=== PATIENT | male | born 1950 | race Caucasian/White ===

== ENCOUNTER → 2017-04-02 | Outpatient (CLI) | payer OTHER ==
[~2017-04-02] MED LIST: /ADVA50050 IN; /GLYB5TA OR; ASPI81TA31 OR; BACT800T OR; CALCIUM +D PO; CEPH500C OR; CLINDAMYCIN PO; COZA50TA18 OR; FLON0.05; GLIM2TA PO; GLUC1000 OR; INVO100T PO; JANU100T PO; JANUVIA PO; KEFL500C OR; MULTIVIT PO; POTA10CA2 OR; PRAV40TA2 PO; PRIL20CA OR; VITA200016 PO
[2017-04-02 09:38] LABS: BASO % 0.7 % (0.0-1.0); LARGE UNSTAINED CELL # 0.2 K/mm3 (0.0-0.4); LARGE UNSTAINED CELL % 2.7 % (0.0-4.0); LYMPH # 1.5 K/mm3 (1.5-4.5); LYMPH % 21.6 % (24.0-44.0); MEAN CORPUSCULAR HEMOGLOBIN 30.3 pg (27.0-33.0); MEAN CORPUSCULAR HGB CONC 35.1 g/dl (32.0-36.5); MEAN CORPUSCULAR VOLUME 86.4 fl (80.0-96.0); MONO # 0.5 K/mm3 (0.0-0.8); MONO % 7.6 % (0.0-5.0); NEUTROPHILS # 4.2 K/mm3 (1.8-7.7); NEUTROPHILS % 67.3 % (36.0-66.0); PLATELET COUNT, AUTOMATED 148 k/mm3 (150-450); RED CELL DISTRIBUTION WIDTH 12.4 % (11.5-14.5); WHITE BLOOD COUNT 6.2 K/mm3 (4.0-10.0)
== END ==
LOC: M WUC 08:11
PROVIDERS: ATTEND Family Medicine
DX: E55.9 Vitamin D deficiency, unspecified (principal); E11.9 Type 2 diabetes mellitus without complications; E78.5 Hyperlipidemia, unspecified; I10 Essential (primary) hypertension; Z12.5 Encounter for screening for malignant neoplasm of prostate; E80.4 Gilbert syndrome; B36.0 Pityriasis versicolor

== ENCOUNTER → 2017-08-20 | Outpatient (CLI) | payer OTHER ==
[~2017-08-20] MED LIST changes: +NIZO2SHA TOP; +TRUL0.5I SC; +TUMS500C PO
[2017-08-20 09:33] LABS: INR 1.06
[2017-08-20 09:56] LABS: VITAMIN B12 LEVEL 408 PG/ML (247-911)
[2017-08-20 09:58] LABS: ALBUMIN/GLOBULIN RATIO 1.38 (1.00-1.93); ALKALINE PHOSPHATASE 136 U/L (45-117); ALT/SGPT 28 U/L (12-78); ANION GAP 9 MEQ/L (8-16); AST/SGOT 12 U/L (15-37); BLOOD UREA NITROGEN 20 MG/DL (7-18); CALCIUM LEVEL 9.5 MG/DL (8.8-10.2); CARBON DIOXIDE LEVEL 29 MEQ/L (21-32); CHLORIDE LEVEL 105 MEQ/L (98-107); CREATININE FOR GFR 0.92 MG/DL (0.70-1.30); GLOMERULAR FILTRATION RATE > 60.0 (>49); GLUCOSE, FASTING 191 MG/DL (80-110); POTASSIUM SERUM 4.3 MEQ/L (3.5-5.1); SODIUM LEVEL 143 MEQ/L (136-145); TOTAL PROTEIN 6.9 GM/DL (6.4-8.2)
== END ==
LOC: M WUC 08:08
PROVIDERS: ATTEND Family Medicine
DX: E11.9 Type 2 diabetes mellitus without complications (principal); E55.9 Vitamin D deficiency, unspecified; E78.5 Hyperlipidemia, unspecified; E80.4 Gilbert syndrome; Z12.5 Encounter for screening for malignant neoplasm of prostate; Z79.01 Long term (current) use of anticoagulants
CPT/HCPCS: 36415; 80053; 82607; 83036; 83970; 84443; 85610; 85730; G0103

== ENCOUNTER → 2017-12-24 | Outpatient (CLI) | payer OTHER ==
[2017-12-24 10:28] LABS: ALBUMIN/GLOBULIN RATIO 1.43 (1.00-1.93); ALKALINE PHOSPHATASE 138 U/L (45-117); ALT/SGPT 22 U/L (12-78); ANION GAP 5 MEQ/L (8-16); AST/SGOT 13 U/L (7-37); BILIRUBIN,TOTAL 1.1 MG/DL (0.2-1.0); BLOOD UREA NITROGEN 21 MG/DL (7-18); C REACTIVE PROTEIN QUANTITATIV < 0.30 MG/DL (0.00-0.30); CALCIUM LEVEL 9.4 MG/DL (8.8-10.2); CARBON DIOXIDE LEVEL 31 MEQ/L (21-32); CHLORIDE LEVEL 104 MEQ/L (98-107); CHOLESTEROL LEVEL 100 MG/DL (<200); CHOLESTEROL RISK RATIO 2.222 (<5); CPK CREATINE PHOSPHOKINASE 51 U/L (39-308); CREATININE FOR GFR 0.94 MG/DL (0.70-1.30); GLOMERULAR FILTRATION RATE > 60.0 (>49); GLUCOSE, FASTING 154 MG/DL (70-100); HDL CHOLESTEROL 45 MG/DL (>40); LDL CHOLESTEROL 27.6 MG/DL (<100); NON-HDL-C 55 MG/DL; POTASSIUM SERUM 4.8 MEQ/L (3.5-5.1); SODIUM LEVEL 140 MEQ/L (136-145); TOTAL PROTEIN 6.8 GM/DL (6.4-8.2); TRIGLYCERIDES LEVEL 137 MG/DL (<150)
[2017-12-24 10:41] LABS: ESTIMATED AVERAGE GLUCOSE 169 MG/DL (60-110); HEMOGLOBIN A1c 7.5 %
[2017-12-24 10:54] LABS: TOTAL 25(OH) VITAMIN D 38.5 NG/ML (30.0-100.0)
[2017-12-24 10:56] LABS: PTH INTACT 91.1 PG/ML (14.0-72.0)
== END ==
LOC: M WUC 08:08
DX: E78.5 Hyperlipidemia, unspecified (principal); E55.9 Vitamin D deficiency, unspecified; E11.9 Type 2 diabetes mellitus without complications; Z12.5 Encounter for screening for malignant neoplasm of prostate
CPT/HCPCS: 82550

== ENCOUNTER → 2018-05-23 | Outpatient (CLI) | payer OTHER ==
[2018-05-23 12:47] LABS: APPEARANCE, URINE CLEAR (CLEAR); BACTERIA, URINE AUTO NEGATIVE (NEGATIVE); BILIRUBIN, URINE AUTO NEGATIVE (NEGATIVE); BLOOD, URINE BLOOD NEGATIVE (NEGATIVE); COLOR, URINE STRAW (YELLOW); GLUCOSE, URINE (UA) AUTO 3+ mg/dL (NEGATIVE); KETONE, URINE AUTO NEGATIVE (NEGATIVE); LEUKOCYTE ESTERASE, URINE AUTO NEGATIVE (NEGATIVE); NITRITE, URINE AUTO NEGATIVE (NEGATIVE); PROTEIN, URINE AUTO NEGATIVE (NEGATIVE); RBC, URINE AUTO 1 /HPF (0-3); SQUAMOUS EPITHELIAL CELL UR AU 0 /HPF (0-6); UROBILINOGEN, URINE AUTO 0.2 mg/dL (0.0-2.0); WBC, URINE AUTO 0 /HPF (0-3)
[2018-05-23 13:24] LABS: ALBUMIN 3.8 GM/DL (3.2-5.2); ALBUMIN/GLOBULIN RATIO 1.31 (1.00-1.93); ALKALINE PHOSPHATASE 167 U/L (45-117); ALT/SGPT 26 U/L (12-78); ANION GAP 9 MEQ/L (8-16); AST/SGOT 13 U/L (7-37); BILIRUBIN,TOTAL 1.2 MG/DL (0.2-1.0); BLOOD UREA NITROGEN 21 MG/DL (7-18); CALCIUM LEVEL 9.7 MG/DL (8.8-10.2); CARBON DIOXIDE LEVEL 28 MEQ/L (21-32); CHLORIDE LEVEL 103 MEQ/L (98-107); CREATININE FOR GFR 0.99 MG/DL (0.70-1.30); FREE T4 1.08 NG/DL (0.76-1.46); GLOMERULAR FILTRATION RATE > 60.0 (>49); GLUCOSE, FASTING 230 MG/DL (70-100); SODIUM LEVEL 140 MEQ/L (136-145); TOTAL PROTEIN 6.7 GM/DL (6.4-8.2)
[2018-05-23 13:28] LABS: ESTIMATED AVERAGE GLUCOSE 186 MG/DL (60-110); HEMOGLOBIN A1c 8.1 %
[2018-05-23 14:21] LABS: CREATININE, URINE 56.4 MG/DL; MALB URINE SIEMENS 20.7 MG/L; MAU/CREAT RATIO 36.7 MCG/MG (0.0-30.0)
== END ==
LOC: M WUC 08:41
DX: E55.9 Vitamin D deficiency, unspecified (principal); E11.9 Type 2 diabetes mellitus without complications; E78.5 Hyperlipidemia, unspecified
CPT/HCPCS: 83735

== ENCOUNTER 2018-07-28 14:31 | Emergency (ER) | payer OTHER ==
[2018-07-28 15:12] LABS: BASO # 0.1 10^3/uL (0.0-0.2); BASO % 0.7 % (0.0-1.0); EOS # 0.2 10^3/uL (0.0-0.50); HEMATOCRIT 44.6 % (42.0-52.0); HEMOGLOBIN 15.1 g/dl (13.5-17.5); IMMATURE GRANULOCYTE % 0.6 % (0-3.0); LYMPH # 1.5 10^3/uL (1.5-4.5); LYMPH % 17.7 % (24.0-44.0); MEAN CORPUSCULAR HEMOGLOBIN 29.2 pg (27.0-33.0); MEAN CORPUSCULAR HGB CONC 33.9 g/dl (32.0-36.5); MEAN CORPUSCULAR VOLUME 86.1 fl (80.0-96.0); MONO # 0.6 10^3/uL (0.0-0.8); MONO % 7.1 % (0.0-5.0); NEUTROPHILS # 6.1 10^3/uL (1.8-7.7); NEUTROPHILS % 71.9 % (36.0-66.0); PLATELET COUNT, AUTOMATED 150 10^3/uL (150-450); RED BLOOD COUNT 5.18 10^6/uL (4.30-6.10); RED CELL DISTRIBUTION WIDTH 12.1 % (11.5-14.5); WHITE BLOOD COUNT 8.5 10^3/uL (4.0-10.0)
[2018-07-28] MEDS ORDERED: MORPHINE 4 MG/ML 1ML VIAL/SYRINGE (J2270) IV (15:15)
[2018-07-28 15:22] LABS: INR 1.07
[2018-07-28 15:23] LABS: PARTIAL THROMBOPLASTIN TIME 28.8 SECONDS (25.4-37.6)
[2018-07-28 15:27] LABS: ALBUMIN/GLOBULIN RATIO 1.05 (1.00-1.93); ALKALINE PHOSPHATASE 159 U/L (45-117); ALT/SGPT 27 U/L (12-78); ANION GAP 9 MEQ/L (8-16); AST/SGOT 14 U/L (7-37); BILIRUBIN,DIRECT 0.3 MG/DL (0.0-0.2); BILIRUBIN,TOTAL 1.1 MG/DL (0.2-1.0); BLOOD UREA NITROGEN 18 MG/DL (7-18); CALCIUM LEVEL 9.9 MG/DL (8.8-10.2); CARBON DIOXIDE LEVEL 30 MEQ/L (21-32); CHLORIDE LEVEL 103 MEQ/L (98-107); CK-MB VALUE MASS 1.9 NG/ML (<3.6); CPK CREATINE PHOSPHOKINASE 57 U/L (39-308); CREATININE FOR GFR 0.94 MG/DL (0.70-1.30); GLOMERULAR FILTRATION RATE > 60.0 (>49); GLUCOSE, FASTING 129 MG/DL (70-100); LIPASE 255 U/L (73-393); MB/CK RELATIVE INDEX 3.33 (< OR =4); POTASSIUM SERUM 4.3 MEQ/L (3.5-5.1); SODIUM LEVEL 142 MEQ/L (136-145); TOTAL PROTEIN 7.8 GM/DL (6.4-8.2); TROPONIN I < 0.02 NG/ML (< 0.10)
[2018-07-28] MEDS ORDERED: ISOVUE-370 76% 100ML VIAL (Q9967) As Ordered (15:54)
[2018-07-28 18:20] LABS: BEDSIDE GLUCOSE 98 MG/DL (80-115)
== END 2018-07-28 19:12 | disposition home or self-care (01) ==
LOC: M ED 14:31
DX: M25.512 Pain in left shoulder (principal); E11.9 Type 2 diabetes mellitus without complications; I10 Essential (primary) hypertension; E78.5 Hyperlipidemia, unspecified; K21.9 Gastro-esophageal reflux disease without esophagitis; D86.9 Sarcoidosis, unspecified; E80.4 Gilbert syndrome
CPT/HCPCS: Q9967

== ENCOUNTER → 2018-09-22 | Outpatient (CLI) | payer OTHER ==
[2018-09-22 09:29] LABS: APPEARANCE, URINE CLEAR (CLEAR); BACTERIA, URINE AUTO NEGATIVE (NEGATIVE); BILIRUBIN, URINE AUTO NEGATIVE (NEGATIVE); BLOOD, URINE BLOOD NEGATIVE (NEGATIVE); COLOR, URINE YELLOW (YELLOW); GLUCOSE, URINE (UA) AUTO 3+ mg/dL (NEGATIVE); KETONE, URINE AUTO NEGATIVE (NEGATIVE); LEUKOCYTE ESTERASE, URINE AUTO NEGATIVE (NEGATIVE); NITRITE, URINE AUTO NEGATIVE (NEGATIVE); PROTEIN, URINE AUTO NEGATIVE (NEGATIVE); RBC, URINE AUTO 1 /HPF (0-3); SQUAMOUS EPITHELIAL CELL UR AU 0 /HPF (0-6); UROBILINOGEN, URINE AUTO 0.2 mg/dL (0.0-2.0); WBC, URINE AUTO 0 /HPF (0-3)
[2018-09-22 09:47] LABS: ALBUMIN 4.1 GM/DL (3.2-5.2); ALBUMIN/GLOBULIN RATIO 1.64 (1.00-1.93); ALKALINE PHOSPHATASE 157 U/L (45-117); ALT/SGPT 24 U/L (12-78); ANION GAP 8 MEQ/L (8-16); AST/SGOT 15 U/L (7-37); BILIRUBIN,TOTAL 1.7 MG/DL (0.2-1.0); BLOOD UREA NITROGEN 21 MG/DL (7-18); CALCIUM LEVEL 9.7 MG/DL (8.8-10.2); CARBON DIOXIDE LEVEL 31 MEQ/L (21-32); CHLORIDE LEVEL 104 MEQ/L (98-107); CREATININE FOR GFR 0.86 MG/DL (0.70-1.30); GLOMERULAR FILTRATION RATE > 60.0 (>49); GLUCOSE, FASTING 148 MG/DL (70-100); POTASSIUM SERUM 4.1 MEQ/L (3.5-5.1); PSA SCREENING 0.76 NG/ML (< 4.0); SODIUM LEVEL 143 MEQ/L (136-145); TOTAL PROTEIN 6.6 GM/DL (6.4-8.2)
[2018-09-22 10:03] LABS: MALB URINE SIEMENS 33.4 MG/L
[2018-09-22 10:17] LABS: MAU/CREAT RATIO 45.8 MCG/MG (0.0-30.0)
[2018-09-22 10:29] LABS: PTH INTACT 71.3 PG/ML (18.5-88.0); TOTAL 25(OH) VITAMIN D 38.9 NG/ML (30.0-100.0)
[2018-09-22 10:37] LABS: ESTIMATED AVERAGE GLUCOSE 174 MG/DL (60-110); HEMOGLOBIN A1c 7.7 %
[2018-09-23 14:47] LABS: H PYLORI SERUM QUANT IgG ABY 0.42 (0.00-0.79)
== END ==
LOC: M WUC 08:12
DX: E55.9 Vitamin D deficiency, unspecified (principal); E11.9 Type 2 diabetes mellitus without complications; R10.13 Epigastric pain; Z12.5 Encounter for screening for malignant neoplasm of prostate; Z79.899 Other long term (current) drug therapy
CPT/HCPCS: 80053

== ENCOUNTER → 2019-02-16 | Outpatient (CLI) | payer MEDICARE ==
[2019-02-16 09:50] LABS: BASO # 0.1 10^3/uL (0.0-0.2); BASO % 0.8 % (0.0-1.0); EOS # 0.2 10^3/uL (0.0-0.50); EOS % 2.2 % (0.0-3.0); HEMATOCRIT 40.4 % (42.0-52.0); HEMOGLOBIN 13.6 g/dl (13.5-17.5); LYMPH # 1.3 10^3/uL (1.5-4.5); LYMPH % 18.2 % (24.0-44.0); MEAN CORPUSCULAR HEMOGLOBIN 28.5 pg (27.0-33.0); MEAN CORPUSCULAR HGB CONC 33.7 g/dl (32.0-36.5); MEAN CORPUSCULAR VOLUME 84.7 fl (80.0-96.0); MONO # 0.5 10^3/uL (0.0-0.8); MONO % 7.3 % (0.0-5.0); NEUTROPHILS # 5.1 10^3/uL (1.8-7.7); NEUTROPHILS % 71.2 % (36.0-66.0); PLATELET COUNT, AUTOMATED 136 10^3/uL (150-450); RED BLOOD COUNT 4.77 10^6/uL (4.30-6.10); WHITE BLOOD COUNT 7.1 10^3/uL (4.0-10.0)
[2019-02-16 10:16] LABS: ALT/SGPT 26 U/L (12-78); BILIRUBIN,DIRECT 0.3 MG/DL (0.0-0.2); BILIRUBIN,TOTAL 1.3 MG/DL (0.2-1.0); BLOOD UREA NITROGEN 20 MG/DL (7-18); CALCIUM LEVEL 9.7 MG/DL (8.8-10.2); CARBON DIOXIDE LEVEL 30 MEQ/L (21-32); CHLORIDE LEVEL 105 MEQ/L (98-107); CHOLESTEROL LEVEL 111 MG/DL (<200); CHOLESTEROL RISK RATIO 2.581 (<5); CREATININE FOR GFR 0.94 MG/DL (0.70-1.30); GLOMERULAR FILTRATION RATE > 60.0 (>49); GLUCOSE, FASTING 161 MG/DL (70-100); HDL CHOLESTEROL 43 MG/DL (>40); LDL CHOLESTEROL 43 MG/DL (<100); NON-HDL-C 68 MG/DL; POTASSIUM SERUM 4.2 MEQ/L (3.5-5.1); SODIUM LEVEL 142 MEQ/L (136-145); TOTAL PROTEIN 6.7 GM/DL (6.4-8.2); TRIGLYCERIDES LEVEL 125 MG/DL (<150)
[2019-02-16 11:21] LABS: HEMOGLOBIN A1c 9.1 %
[2019-02-19 00:07] LABS: ANA (HEP2) Negative (.); PR3 ANTIPROTEINASE ANTIBODIES <3.5 U/mL (0.0-3.5)
[2019-02-21 00:06] LABS: ANCA-ATYPICAL <1:20 titer (Neg:<1:20); CYTOPLASMIC NEUTROP AB ANCA-C <1:20 titer (Neg:<1:20); PERINUCLEAR AB ANCA-P <1:20 titer (Neg:<1:20)
== END ==
LOC: M WUC 08:07
PROVIDERS: ATTEND Family Medicine
DX: E80.4 Gilbert syndrome (principal); E11.9 Type 2 diabetes mellitus without complications; E78.5 Hyperlipidemia, unspecified; E55.9 Vitamin D deficiency, unspecified

== ENCOUNTER → 2019-05-01 | Outpatient (CLI) | payer MEDICARE ==
[~2019-05-01] MED LIST changes: -/ADVA50050 IN; -/GLYB5TA OR; +ADVA1AER2 IN; -GLIM2TA PO; +GLIM2TAB29 PO; +GLYB1TAB29 OR
--- NOTE | 2019-05-01 13:16 | REP ---
CERVICAL SPINE, EIGHT VIEWS: HISTORY: Strain. The cervical spine is visualized from C1 to the C6-7 level with the lateral radiographs. There is no acute fracture. The C4-5 and C5-6 intervertebral discs are decreased in height consistent with disc degeneration. Osteophytes are present on C5 and 6. There is narrowing of the C5 neural foramina secondary to uncinate process hypertrophy. There are 2 mm of retrolisthesis of C5 on 6. This is unchanged with flexion and extension. IMPRESSION: Degenerative change as described above. Electronically Signed by Vinod Avendano MD 05/01/2019 01:21 P
== END ==
LOC: M WUC 12:12
PROVIDERS: ATTEND Physician Assistant
DX: S16.1XXA Strain of muscle, fascia and tendon at neck level, initial encounter (principal); M50.321 Other cervical disc degeneration at C4-C5 level; M50.322 Other cervical disc degeneration at C5-C6 level; M25.78 Osteophyte, vertebrae; M48.02 Spinal stenosis, cervical region; X58.XXXA Exposure to other specified factors, initial encounter; Y92.89 Other specified places as the place of occurrence of the external cause

== ENCOUNTER → 2019-07-13 | Outpatient (CLI) | payer MEDICARE ==
[2019-07-13 09:52] LABS: INR 1.09; PROTHROMBIN TIME 13.8 SECONDS (11.8-14.0)
[2019-07-13 09:53] LABS: PARTIAL THROMBOPLASTIN TIME 30.4 SECONDS (25.0-38.4)
[2019-07-13 10:22] LABS: ALBUMIN 3.9 GM/DL (3.2-5.2); ALT/SGPT 25 U/L (12-78); BILIRUBIN,DIRECT 0.2 MG/DL (0.0-0.2); BLOOD UREA NITROGEN 22 MG/DL (7-18); CALCIUM LEVEL 9.9 MG/DL (8.8-10.2); CARBON DIOXIDE LEVEL 29 MEQ/L (21-32); CHLORIDE LEVEL 107 MEQ/L (98-107); CREATININE FOR GFR 0.88 MG/DL (0.70-1.30); GAMMA GLUTAMYLTRANSPEPTIDASE 15 U/L (15-85); GLOMERULAR FILTRATION RATE > 60.0 (>42); GLUCOSE, FASTING 143 MG/DL (70-100); POTASSIUM SERUM 4.4 MEQ/L (3.5-5.1); SODIUM LEVEL 143 MEQ/L (136-145); TOTAL PROTEIN 6.8 GM/DL (6.4-8.2)
[2019-07-13 10:36] LABS: PTH INTACT 64.8 PG/ML (18.5-88.0); VITAMIN B12 LEVEL 366 PG/ML (247-911)
[2019-07-13 14:44] LABS: HEMOGLOBIN A1c 8.2 %
[2019-07-15 00:07] LABS: ANTI-MITOCHONDRIAL ANTIBODY <20.0 Units (0.0-20.0); VITAMIN D 1,25 DIHYDROXY 37.4 pg/mL (19.9-79.3)
== END ==
LOC: M WUC 08:02
PROVIDERS: ATTEND Family Medicine
DX: E80.4 Gilbert syndrome (principal); E55.9 Vitamin D deficiency, unspecified; E11.9 Type 2 diabetes mellitus without complications; Z79.01 Long term (current) use of anticoagulants

== ENCOUNTER → 2019-12-14 | Outpatient (CLI) | payer MEDICARE ==
[2019-12-14 09:47] LABS: BASO # 0.1 10^3/uL (0.0-0.2); BASO % 0.8 % (0.0-1.0); EOS # 0.2 10^3/uL (0.0-0.5); EOS % 2.6 % (0.0-3.0); HEMATOCRIT 42.4 % (42.0-52.0); HEMOGLOBIN 13.3 g/dl (13.5-17.5); LYMPH # 1.4 10^3/uL (1.5-5.0); LYMPH % 20.9 % (24.0-44.0); MEAN CORPUSCULAR HEMOGLOBIN 26.6 pg (27.0-33.0); MEAN CORPUSCULAR HGB CONC 31.4 g/dl (32.0-36.5); MEAN CORPUSCULAR VOLUME 84.8 fl (80.0-96.0); MONO # 0.5 10^3/uL (0.0-0.8); MONO % 7.1 % (0.0-5.0); NEUTROPHILS # 4.5 10^3/uL (1.5-8.5); NEUTROPHILS % 68.4 % (36.0-66.0); PLATELET COUNT, AUTOMATED 162 10^3/uL (150-450); WHITE BLOOD COUNT 6.6 10^3/uL (4.0-10.0)
[2019-12-14 10:04] LABS: HEMOGLOBIN A1c 8.4 %
[2019-12-14 10:16] LABS: CHOLESTEROL RISK RATIO 2.684 (<5); FREE T4 1.12 NG/DL (0.76-1.46); THYROID STIMULATING HORMONE 1.38 uIU/ML (0.358-3.740)
== END ==
LOC: M WUC 08:09
PROVIDERS: ATTEND Family Medicine
DX: E53.8 Deficiency of other specified B group vitamins (principal); E11.9 Type 2 diabetes mellitus without complications; Z12.5 Encounter for screening for malignant neoplasm of prostate
CPT/HCPCS: 36415; 80061; 82607; 83036; 84439; 84443; 85025; 85046; G0103

== ENCOUNTER → 2020-05-21 | Outpatient (CLI) | payer MEDICARE ==
[2020-05-21 10:05] LABS: BASO # 0.1 10^3/uL (0.0-0.2); BASO % 0.8 % (0.0-1.0); EOS # 0.2 10^3/uL (0.0-0.5); EOS % 2.2 % (0.0-3.0); HEMATOCRIT 40.3 % (42.0-52.0); HEMOGLOBIN 12.7 g/dl (13.5-17.5); LYMPH # 1.3 10^3/uL (1.5-5.0); LYMPH % 17.9 % (24.0-44.0); MEAN CORPUSCULAR HEMOGLOBIN 26.6 pg (27.0-33.0); MEAN CORPUSCULAR HGB CONC 31.5 g/dl (32.0-36.5); MEAN CORPUSCULAR VOLUME 84.5 fl (80.0-96.0); MONO # 0.5 10^3/uL (0.0-0.8); MONO % 6.6 % (0.0-5.0); NEUTROPHILS # 5.1 10^3/uL (1.5-8.5); NEUTROPHILS % 72.1 % (36.0-66.0); PLATELET COUNT, AUTOMATED 147 10^3/uL (150-450); RED BLOOD COUNT 4.77 10^6/uL (4.30-6.10); WHITE BLOOD COUNT 7.1 10^3/uL (4.0-10.0)
[2020-05-21 10:12] LABS: APPEARANCE, URINE CLEAR (CLEAR); BACTERIA, URINE AUTO NEGATIVE (NEGATIVE); BILIRUBIN, URINE AUTO NEGATIVE (NEGATIVE); BLOOD, URINE BLOOD NEGATIVE (NEGATIVE); COLOR, URINE YELLOW (YELLOW); GLUCOSE, URINE (UA) AUTO 3+ mg/dL (NEGATIVE); KETONE, URINE AUTO NEGATIVE (NEGATIVE); LEUKOCYTE ESTERASE, URINE AUTO NEGATIVE (NEGATIVE); MUCUS, URINE SMALL (NEGATIVE); NITRITE, URINE AUTO NEGATIVE (NEGATIVE); PROTEIN, URINE AUTO NEGATIVE (NEGATIVE); RBC, URINE AUTO 3 /HPF (0-3); SPECIFIC GRAVITY URINE AUTO 1.029 (1.002-1.035); SQUAMOUS EPITHELIAL CELL UR AU 0 /HPF (0-6); UROBILINOGEN, URINE AUTO 0.2 mg/dL (0.0-2.0); WBC, URINE AUTO 1 /HPF (0-3)
[2020-05-21 10:32] LABS: ALBUMIN 3.9 GM/DL (3.2-5.2); ALT/SGPT 21 U/L (12-78); BLOOD UREA NITROGEN 26 MG/DL (7-18); CALCIUM LEVEL 9.5 MG/DL (8.8-10.2); CARBON DIOXIDE LEVEL 28 MEQ/L (21-32); CHLORIDE LEVEL 106 MEQ/L (98-107); CREATININE FOR GFR 0.91 MG/DL (0.70-1.30); GLOMERULAR FILTRATION RATE > 60.0 (>42); GLUCOSE, FASTING 137 MG/DL (70-100); POTASSIUM SERUM 4.1 MEQ/L (3.5-5.1); SODIUM LEVEL 139 MEQ/L (136-145); TOTAL PROTEIN 6.8 GM/DL (6.4-8.2)
[2020-05-21 10:37] LABS: CREATININE, URINE 69.1 MG/DL; MALB URINE SIEMENS 33.5 MG/L; MAU/CREAT RATIO 48.4 MCG/MG (0.0-30.0)
[2020-05-21 10:57] LABS: HEMOGLOBIN A1c 8.8 %
[2020-05-21 14:12] LABS: PTH INTACT 101.7 PG/ML (18.5-88.0); TOTAL 25(OH) VITAMIN D 38.6 NG/ML (30.0-100.0)
== END ==
LOC: M WUC 08:27
PROVIDERS: ATTEND Family Medicine
DX: D69.6 Thrombocytopenia, unspecified (principal); E80.4 Gilbert syndrome; E55.9 Vitamin D deficiency, unspecified; E11.9 Type 2 diabetes mellitus without complications; Z79.899 Other long term (current) drug therapy

== ENCOUNTER → 2021-01-20 | Outpatient (CLI) | payer MEDICARE ==
[2021-01-20 11:54] LABS: BASO # 0.1 10^3/uL (0.0-0.2); BASO % 0.8 % (0.0-1.0); EOS # 0.1 10^3/uL (0.0-0.5); EOS % 1.8 % (0.0-3.0); HEMATOCRIT 39.5 % (42.0-52.0); HEMOGLOBIN 12.3 g/dl (13.5-17.5); LYMPH % 15.5 % (24.0-44.0); MEAN CORPUSCULAR HEMOGLOBIN 25.8 pg (27.0-33.0); MEAN CORPUSCULAR HGB CONC 31.1 g/dl (32.0-36.5); MEAN CORPUSCULAR VOLUME 82.8 fl (80.0-96.0); MONO # 0.5 10^3/uL (0.0-0.8); MONO % 7.2 % (2.0-8.0); NEUTROPHILS # 4.9 10^3/uL (1.5-8.5); NEUTROPHILS % 74.2 % (36.0-66.0); PLATELET COUNT, AUTOMATED 114 10^3/uL (150-450); RED BLOOD COUNT 4.77 10^6/uL (4.30-6.10); WHITE BLOOD COUNT 6.6 10^3/uL (4.0-10.0)
[2021-01-20 12:43] LABS: ALBUMIN 3.9 GM/DL (3.2-5.2); ALT/SGPT 21 U/L (12-78); BILIRUBIN,TOTAL 1.2 MG/DL (0.2-1.0); BLOOD UREA NITROGEN 22 MG/DL (7-18); CALCIUM LEVEL 9.6 MG/DL (8.8-10.2); CARBON DIOXIDE LEVEL 29 MEQ/L (21-32); CHLORIDE LEVEL 101 MEQ/L (98-107); CHOLESTEROL LEVEL 105 MG/DL (<200); CHOLESTEROL RISK RATIO 2.763 (<5); FREE T4 1.08 NG/DL (0.76-1.46); GLOMERULAR FILTRATION RATE > 60.0 (>42); GLUCOSE, FASTING 201 MG/DL (70-100); HDL CHOLESTEROL 38 MG/DL (>40); LDL CHOLESTEROL 34 MG/DL (<100); NON-HDL-C 67 MG/DL; POTASSIUM SERUM 4.1 MEQ/L (3.5-5.1); PTH INTACT 90.8 PG/ML (18.5-88.0); SODIUM LEVEL 138 MEQ/L (136-145); TOTAL 25(OH) VITAMIN D 27.8 NG/ML (30.0-100.0); TOTAL PROTEIN 6.7 GM/DL (6.4-8.2); TRIGLYCERIDES LEVEL 165 MG/DL (<150)
[2021-01-20 13:26] LABS: HEMOGLOBIN A1c 9.7 %
== END ==
LOC: M WUC 09:25
PROVIDERS: ATTEND Family Medicine
DX: E11.9 Type 2 diabetes mellitus without complications (principal); E78.5 Hyperlipidemia, unspecified; I10 Essential (primary) hypertension; D69.6 Thrombocytopenia, unspecified; Z79.899 Other long term (current) drug therapy

== ENCOUNTER → 2021-02-07 | Outpatient (CLI) | payer MEDICARE ==
--- NOTE | 2021-02-07 09:05 | REP ---
INDICATION: NONALCOHOLIC FATTY LIVER DISEASE COMPARISON: None. TECHNIQUE: Real time mccrary scale ultrasound examination using curved array transducer. FINDINGS: Liver demonstrates mildly increased echotexture without focal hepatic lesion. The pancreas is incompletely evaluated due to interposed bowel gas but visualized portions appear normal. Patient is noted to be status post cholecystectomy. Common bile duct is upper limits of normal at 8.2 mm diameter. Right kidney measures 12.4 x 6.1 x 6.0 cm without hydronephrosis. And includes 7.9 x 5.1 x 7.0 cm solid mass at the lower pole. No ascites. IMPRESSION: 1. Solid left lower pole renal mass most compatible with renal cell carcinoma unless proven otherwise. 2. Mild hepatosteatosis. <Electronically signed by Jb Will > 02/07/21 0901
== END ==
LOC: M RAD 07:54
PROVIDERS: ATTEND Family Medicine
DX: D49.512 Neoplasm of unspecified behavior of left kidney (principal); K76.0 Fatty (change of) liver, not elsewhere classified

== ENCOUNTER → 2021-02-18 | Outpatient (CLI) | payer MEDICARE ==
[2021-02-18 17:12] LABS: ALBUMIN 3.9 GM/DL (3.2-5.2); ALT/SGPT 23 U/L (12-78); BILIRUBIN,TOTAL 1.4 MG/DL (0.2-1.0); BLOOD UREA NITROGEN 20 MG/DL (7-18); CALCIUM LEVEL 9.5 MG/DL (8.8-10.2); CARBON DIOXIDE LEVEL 29 MEQ/L (21-32); CHLORIDE LEVEL 103 MEQ/L (98-107); CREATININE FOR GFR 0.89 MG/DL (0.70-1.30); GLOMERULAR FILTRATION RATE > 60.0 (>42); GLUCOSE, FASTING 181 MG/DL (70-100); POTASSIUM SERUM 4.3 MEQ/L (3.5-5.1); SODIUM LEVEL 138 MEQ/L (136-145); TOTAL PROTEIN 6.7 GM/DL (6.4-8.2)
== END ==
LOC: M WUC 10:47
PROVIDERS: ATTEND Family Medicine
DX: N28.89 Other specified disorders of kidney and ureter (principal); Z79.899 Other long term (current) drug therapy

== ENCOUNTER → 2021-02-19 | Outpatient (CLI) | payer MEDICARE ==
--- NOTE | 2021-02-19 11:49 | REP ---
INDICATION: RT RENAL MASS. COMPARISON: Ultrasound 02/07/2021. TECHNIQUE: Multiple sequences obtained in the axial and coronal planes prior to and following the intravenous administration of 15 mL ProHance. FINDINGS: In the posteromedial right dome of the liver there is a hyperintense nodule on T2 weighted images which measures 1.2 cm in diameter. More inferiorly in the right lobe of the liver medially there is a somewhat lobulated hyperintense nodule measuring 2.4 cm in maximum diameter. On postcontrast images these areas of the liver are not imaged. Therefore a specific diagnosis cannot be made. I suspect these represent benign cysts or hemangiomas. The visualized spleen and adrenals are grossly unremarkable. In the tail of the pancreas there is a lobulated cystic structure which measures approximately 1.8 x 3.5 cm. There is no definite internal enhancement, with no definite internal enhancing solid nodule or thick septations. There is no pancreatic duct dilatation. The patient has had a prior cholecystectomy. There is expected mild prominence of the central bile ducts. The left kidney is unremarkable in appearance. In the upper pole the right kidney there is a subcentimeter cyst. In the lower pole of the right kidney there is a large solid heterogeneously enhancing mass suspicious for renal cell carcinoma. Maximum diameter is approximately 7.5 cm. No evidence of adenopathy or free fluid in the visualized abdomen. IMPRESSION: The lower pole the right kidney there is a solid mass suspicious for renal cell carcinoma with a maximum diameter of 7.5 cm. No evidence of adenopathy in the visualized abdomen. Two lesions in the right lobe of the liver as discussed above, I suspect these represent benign cysts or hemangiomas. Recommend follow-up dedicated MRI of the liver with and without contrast for further evaluation. In the tail of the pancreas there is a lobulated cystic structure measuring 1.8 x 3.5 cm with no definite internal enhancement. Recommend follow-up MRI of the pancreas in 6-12 months. <Electronically signed by Harjinder Tyler > 02/19/21 [id number]
== END ==
LOC: M PLARAD 08:53
PROVIDERS: ATTEND Family Medicine
DX: N28.89 Other specified disorders of kidney and ureter (principal)

== ENCOUNTER → 2021-03-03 | Outpatient (CLI) | payer MEDICARE ==
--- NOTE | 2021-03-04 19:49 | REP ---
INDICATION: DIAGNOSING RENAL MASS. COMPARISON: Abdominal right upper quadrant ultrasound dated 02/07/2021 and abdominal MRI dated 02/19/2021. TECHNIQUE: Whole-body PET scanning is performed from the skull base to the upper thighs with 14.61 mCi of F 18 FDG. FINDINGS: Neck and supraclavicular areas: There are no hypermetabolic foci. Chest: There are no hypermetabolic foci. Abdomen, pelvis and upper thighs: There is a soft tissue mass at the lower pole of the right kidney on the CT accompanying the PET scan measuring up to 6.8 cm in diameter. This mass demonstrates borderline hypermetabolic uptake with a standard uptake value of 2.9. There are 2 hypermetabolic foci in the liver, 1 posterior in the dome of the liver with a standard uptake value of 9 point 0 and the other anteriorly in the right lobe of the liver with a standard uptake value of 7.2. There are no other hypermetabolic foci in the abdomen, pelvis or upper thighs. CT accompanying the PET scan: Upon review of the CT accompanying the PET scan there are numerous small ring shaped calcifications in the mediastinum and quang extending inferiorly into the abdomen from the posterior mediastinum, similar appearance to the chest CT on 07/28/2018, uncertain significance, likely old healed granulomas. Additionally there is a 3.1 cm mass in the upper lobe of the right lung containing calcifications and a few other small scattered calcifications throughout the lung em, also similar to the comparison chest CT of 07/28/2018 again likely old healed granulomatas disease. There are no hypermetabolic foci in any of these lesions. IMPRESSION: The known right renal mass demonstrates borderline hypermetabolic uptake. There are 2 hypermetabolic foci in the right lobe of the liver. On the CT accompanying the PET scan there are numerous ring shaped calcifications in the mediastinum and quang, right upper lobe mass with calcifications and several calcifications throughout the lung em. The there is no hypermetabolic uptake associated with any of these lesions. These lesions likely represent old healed granulomatous disease. <Electronically signed by Harjinder Eaton > 03/04/211944
== END ==
LOC: M PLARAD 15:39
PROVIDERS: ATTEND Family Medicine
DX: N28.89 Other specified disorders of kidney and ureter (principal); R91.8 Other nonspecific abnormal finding of lung field
CPT/HCPCS: 78815; A9552

== ENCOUNTER → 2021-03-14 | Outpatient (CLI) | payer MEDICARE ==
[2021-03-14 10:11] LABS: BASO # 0.1 10^3/uL (0.0-0.2); BASO % 0.9 % (0.0-1.0); EOS # 0.1 10^3/uL (0.0-0.5); EOS % 1.9 % (0.0-3.0); HEMOGLOBIN 12.4 g/dl (13.5-17.5); LYMPH # 0.9 10^3/uL (1.5-5.0); LYMPH % 15.2 % (24.0-44.0); MEAN CORPUSCULAR HEMOGLOBIN 25.6 pg (27.0-33.0); MEAN CORPUSCULAR VOLUME 82.6 fl (80.0-96.0); MONO # 0.4 10^3/uL (0.0-0.8); MONO % 7.3 % (2.0-8.0); NEUTROPHILS # 4.2 10^3/uL (1.5-8.5); NEUTROPHILS % 74.2 % (36.0-66.0); PLATELET COUNT, AUTOMATED 107 10^3/uL (150-450); RED BLOOD COUNT 4.84 10^6/uL (4.30-6.10); WHITE BLOOD COUNT 5.7 10^3/uL (4.0-10.0)
[2021-03-14 10:20] LABS: INR 1.05
[2021-03-14 10:21] LABS: PARTIAL THROMBOPLASTIN TIME 28.5 SECONDS (24.2-38.5)
[2021-03-14 10:50] LABS: ALT/SGPT 21 U/L (12-78); BILIRUBIN,DIRECT 0.3 MG/DL (0.0-0.2); BILIRUBIN,TOTAL 1.2 MG/DL (0.2-1.0); BLOOD UREA NITROGEN 23 MG/DL (7-18); CALCIUM LEVEL 10.2 MG/DL (8.8-10.2); CARBON DIOXIDE LEVEL 29 MEQ/L (21-32); CHLORIDE LEVEL 104 MEQ/L (98-107); GLOMERULAR FILTRATION RATE > 60.0 (>42); GLUCOSE, FASTING 217 MG/DL (70-100); POTASSIUM SERUM 4.3 MEQ/L (3.5-5.1); SODIUM LEVEL 139 MEQ/L (136-145); TOTAL PROTEIN 6.9 GM/DL (6.4-8.2)
[2021-03-18 11:19] LABS: CA19-9 TUMOR MARKER,CARBOHYDRA 254.7 U/ML (<35.0)
== END ==
LOC: M WUC 08:22
PROVIDERS: ATTEND Family Medicine
DX: K86.89 Other specified diseases of pancreas (principal); Z80.0 Family history of malignant neoplasm of digestive organs; R16.0 Hepatomegaly, not elsewhere classified

== ENCOUNTER → 2021-03-27 | Outpatient (CLI) | payer MEDICARE ==
[~2021-03-27] MED LIST changes: +ATOR40TA75 PO; +BASA100I SC; +CO-E200C PO; +INSUHUMDS SC; +JARD1TAB PO; +LIDOCAINE 1% MDV 20ML VIAL As Ordered ONE; +SODIUM BICARBONATE 8.4% INJ 50MEQ 50 ML VIAL As Ordered ONE; +SUCR1TA PO; +TELM1TAB37 PO
[2021-03-27 14:00] VITALS: BP 146/75
--- NOTE | 2021-03-27 14:50 | REP ---
INDICATION: LIVER MASS RT LOBE. COMPARISON: None. TECHNIQUE: The procedure was performed by Izabel Kaplan [facility], under the direct supervision of Dr. Davidson. The risks and benefits of the procedure were explained to the patient and an informed consent was obtained both verbally and written. Directly prior to the start of the procedure a formal time-out was completed in the procedure room. FINDINGS: Using ultrasound guidance the left lobe liver mass was localized. The skin was prepped and draped in a sterile fashion. Twenty mL of buffered lidocaine was used as a local anesthetic. Using ultrasound guidance a 19/20 gauge coaxial needle biopsy system was inserted and advanced into the left lobe liver mass. Five core biopsy specimens were obtained and sent to pathology for further analysis. The patient tolerated the procedure well and there were no immediate complications. After the appropriate amount of monitored convalescence the patient was discharged from the department. IMPRESSION: 1. Ultrasound-guided left lobe liver mass biopsy. <Electronically signed by Izabel Kaplan > 03/27/21 1434 <Electronically signed by Sha Davidson > 03/27/21 [id number]
== END ==
LOC: M IRPRO 09:35
PROVIDERS: ATTEND Family Medicine
DX: C22.9 Malignant neoplasm of liver, not specified as primary or secondary (principal)

== ENCOUNTER → 2021-04-21 | Outpatient (CLI) | payer MEDICARE ==
[~2021-04-21] MED LIST changes: +ISOVUE-370 76% 100ML VIAL As Ordered ONE; -LIDOCAINE 1% MDV 20ML VIAL As Ordered ONE; -SODIUM BICARBONATE 8.4% INJ 50MEQ 50 ML VIAL As Ordered ONE
--- NOTE | 2021-04-21 15:28 | REPVR ---
PROCEDURE INFORMATION: Exam: CT Chest With Contrast; Diagnostic Exam date and time: 04/21/2021 2:42 PM Age: 70 years old Clinical indication: Condition or disease; Other: Alcantar CA; Additional info: Pancreatic CA TECHNIQUE: Imaging protocol: Diagnostic computed tomography of the chest with contrast. 3D rendering (Not supervised by radiologist): MIP and/or 3D reconstructed images were created by the technologist. Radiation optimization: All CT scans at this facility use at least one of these dose optimization techniques: automated exposure control; mA and/or kV adjustment per patient size (includes targeted exams where dose is matched to clinical indication); or iterative reconstruction. Contrast material: ISOVUE 370; Contrast volume: 100 ml; Contrast route: INTRAVENOUS (IV); COMPARISON: PT PET/CT Skull/mid thigh 03/03/2021 5:19 PM FINDINGS: Lungs: Interstitial prominence and chronic granulomatous disease. Additional calcified upper lobe ovoid lesions, suggesting superimposed pneumoconiosis or silicosis. Asymmetric elevation of the right hemidiaphragm and mild basilar airspace disease. Pleural spaces: No significant pleural effusion. Heart: Mild left ventricular hypertrophy. Aorta: Ectasia of the thoracic aorta. Lymph nodes: Numerous calcified lymph nodes in association with chronic granulomatous disease. Bones/joints: Degenerative change. Soft tissues: Gynecomastia. IMPRESSION: 1. Interstitial prominence and chronic granulomatous disease. 2. Additional calcified upper lobe ovoid lesions, suggesting superimposed pneumoconiosis or silicosis. 3. Additional findings as described above. Electronically signed by: Sharif Rust On 04/21/2021 15:28:13 PM
--- NOTE | 2021-04-21 15:34 | REPVR ---
PROCEDURE INFORMATION: Exam: CT Abdomen And Pelvis Without And With Contrast Exam date and time: 04/21/2021 2:42 PM Age: 70 years old Clinical indication: Condition or disease; Pancreatic condition; Additional info: Pancreatic CA TECHNIQUE: Imaging protocol: Computed tomography of the abdomen and pelvis without and with contrast. Radiation optimization: All CT scans at this facility use at least one of these dose optimization techniques: automated exposure control; mA and/or kV adjustment per patient size (includes targeted exams where dose is matched to clinical indication); or iterative reconstruction. Contrast material: ISOVUE 370; Contrast volume: 100 ml; Contrast route: INTRAVENOUS (IV); COMPARISON: PT PET/CT Skull/mid thigh 03/03/2021 5:19 PM FINDINGS: Liver: Multiple hepatic metastases, including a 2.6 x 2.3 x 2.4 cm metastasis in the anterior hepatic dome. Gallbladder and bile ducts: Status post cholecystectomy. Mild biliary ductal dilatation. Pancreas: 4.1 x 3.8 by 4.1 cm hypodense pancreatic tail mass, suspicious for malignancy. Biopsy would be required for definitive tissue diagnosis. Spleen: Enlarged spleen measuring 16.5 cm in length. Adrenal glands: Bilateral adrenal nodularity, suspicious for metastases. Kidneys and ureters: Lobulated 7.1 by 6.5 by 6.7 cm ovoid mass with central hypodensity in the right kidney, which demonstrated borderline increased radiotracer uptake on recent PET-CT. Stomach and bowel: Wall thickening in the nondistended stomach. Combined small bowel and colonic dilatation without a focal transition zone. Prominent stool and diverticula. Appendix: Nonvisualization of the appendix. Intraperitoneal space: No significant free fluid. Vasculature: Normal caliber of the abdominal aorta. Non-opacification of the splenic vein with perigastric and perisplenic venous collaterals. Lymph nodes: Subcentimeter lymph nodes. Urinary bladder: Bladder dilatation. Reproductive: Unremarkable as visualized. Bones/joints: Degenerative change and disc bulging. Pagetic change in the right pelvis. Soft tissues: Small fat containing bilateral inguinal hernias. IMPRESSION: 1. Multiple hepatic metastases, including a 2.6 x 2.3 x 2.4 cm metastasis in the anterior hepatic dome. 2. 4.1 x 3.8 by 4.1 cm hypodense pancreatic tail mass, suspicious for malignancy. Biopsy would be required for definitive tissue diagnosis. 3. Bilateral adrenal nodularity, suspicious for metastases. 4. Lobulated 7.1 by 6.5 by 6.7 cm ovoid mass with central hypodensity in the right kidney, which demonstrated borderline increased radiotracer uptake on recent PET-CT. 5. Wall thickening in the nondistended stomach. 6. Non-opacification of the splenic vein with perigastric and perisplenic venous collaterals. 7. Additional findings as described above. COMMENTS: Consistent with the [employer]'s Incidental Findings Committee white paper (J Am Karen Radiol 2018): Any incidental renal lesion less than 1 cm or classified as too small to characterize, or any incidental cystic renal lesion characterized as simple-appearing, is likely benign. No follow-up imaging is recommended for these lesions per consensus recommendations based on imaging criteria. Electronically signed by: Sharif Rust On 04/21/2021 15:34:20 PM
== END ==
LOC: M RAD 13:42
PROVIDERS: ATTEND Internal Medicine Medical Oncology
DX: C78.7 Secondary malignant neoplasm of liver and intrahepatic bile duct (principal); C25.9 Malignant neoplasm of pancreas, unspecified
CPT/HCPCS: 71260; 74178; Q9967

== ENCOUNTER → 2021-05-26 | Outpatient (CLI) | payer MEDICARE ==
[~2021-05-26] MED LIST changes: +D31000TA2 PO; +ECOT81TA5 PO; +GNP80CHW PO; -ISOVUE-370 76% 100ML VIAL As Ordered ONE; +KETO2AER2 TOP; +METF10004 PO; +OMEP40CA4 PO; +VITA250T7 PO
[2021-05-26 16:52] LABS: INR 1.07; PROTHROMBIN TIME 14.1 SECONDS (12.5-14.3)
[2021-05-26 16:53] LABS: ALBUMIN 4.1 GM/DL (3.2-5.2); BILIRUBIN,DIRECT 0.3 MG/DL (0.0-0.2); BILIRUBIN,TOTAL 1.2 MG/DL (0.2-1.0); PARTIAL THROMBOPLASTIN TIME 28.7 SECONDS (24.2-38.5); TOTAL PROTEIN 6.9 GM/DL (6.4-8.2)
== END ==
LOC: M WUC 15:34
PROVIDERS: ATTEND Family Medicine
DX: E50 Vitamin A deficiency (principal)
CPT/HCPCS: 36415; 80076; 82140; 82164; 83516; 85610; 85730; 86200; 86235; 86255; G0103

== ENCOUNTER → 2021-07-08 | Outpatient (CLI) | payer MEDICARE ==
[~2021-07-08] MED LIST changes: +ATIV1TAB7 PO; +INSU100I12 SQ; +TRES1INJ SQ
--- NOTE | 2021-07-08 09:31 | REP ---
INDICATION: PAIN. COMPARISON: 05/01/2019 TECHNIQUE: Seven views FINDINGS: Once again, there is C4-5 and C5-6 disc space narrowing status quo. C5 and C6 osteophyte formation is again noted status quo. There is C5 neural foramina narrowing which is again noted and possibly increased somewhat.. The 2 mm retrolisthesis of C5 and C6 is unchanged. IMPRESSION: Chronic changes as described above. Although this plain radiographic evaluation of the cervical spine shows no evidence of a fracture, it should be remembered that CT is much more sensitive than plain radiography of the C-spine in detecting fractures. If this examination was ordered to rule out a fracture then CT of the cervical spine is recommended. <Electronically signed by Sam Martin > 07/08/21 [id number]
--- NOTE | 2021-07-08 09:41 | REP ---
INDICATION: PAIN. COMPARISON: PA and lateral chest dated 07/28/[address] dated 04/21/2021. FINDINGS: Review of the film file reveals additional history of pancreatic carcinoma. Vertebral body heights, interspacing and alignment are normal. There are no compression deformities. There are no lytic, blastic or destructive changes. The pedicles are unremarkable. There are numerous calcifications in the mediastinum, quang and lung em bilaterally, similar to the comparison studies. There are abdominal right upper quadrant surgical clips. Review of the film file reveals history of cholecystectomy. IMPRESSION: Essentially negative thoracic spine plain film study. Numerous calcifications in the mediastinum, quang, and lung em. This is similar to the comparison studies. Cholecystectomy. <Electronically signed by Harjinder Eaton > 07/08/21 09
== END ==
LOC: M WUC 08:27
PROVIDERS: ATTEND Internal Medicine Medical Oncology
DX: M54.2 Cervicalgia (principal); M54.14 Radiculopathy, thoracic region